=== PATIENT | female | born 1995 | race Caucasian/White ===

== ENCOUNTER 2023-06-05 08:40 | Outpatient (RCR) | payer OTHER, SELFPAY | END 2023-06-07 23:59 | LOC: NS 08:40 | PROVIDERS: Referring Provider Nurse Practitioner Family; Visit Provider Nurse Practitioner Family | DX: Z71.3 Dietary counseling and surveillance (principal); E66.9 Obesity, unspecified; Z68.31 Body mass index [BMI] 31.0-31.9, adult | CPT/HCPCS: 97802 ==

== ENCOUNTER 2023-07-03 09:09 | Outpatient (RCR) | payer OTHER, SELFPAY | END 2023-07-06 23:59 | LOC: NS 09:09 | PROVIDERS: Referring Provider Nurse Practitioner Family; Visit Provider Nurse Practitioner Family | DX: Z71.3 Dietary counseling and surveillance (principal); E66.9 Obesity, unspecified; Z68.31 Body mass index [BMI] 31.0-31.9, adult | CPT/HCPCS: 97803 ==